=== PATIENT | female | born 1970 | race Caucasian/White ===

== ENCOUNTER → 2021-11-01 | Outpatient (CLI) | payer BC | LOC: MRI 13:54 | PROVIDERS: ATTEND Family Medicine | DX: G44.40 Drug-induced headache, not elsewhere classified, not intractable (principal) | CPT/HCPCS: 70551 ==

== ENCOUNTER → 2022-09-05 | Outpatient (CLI) | payer BC | LOC: MRI 10:43 | PROVIDERS: ATTEND Family Medicine | DX: S46.911D Strain of unspecified muscle, fascia and tendon at shoulder and upper arm level, right arm, subsequent encounter (principal) ==